=== PATIENT | male | born 1965 | race Caucasian/White ===

== ENCOUNTER → 2017-07-02 | Outpatient (CLI) | payer OTHER | END | disposition home or self-care (01) | LOC: GMAM 10:52 | PROVIDERS: ATTEND Family Medicine | DX: Z00.00 Encounter for general adult medical examination without abnormal findings (principal) ==

== ENCOUNTER → 2019-03-15 | Outpatient (CLI) | payer OTHER | LOC: GMAM 11:59 | PROVIDERS: ATTEND Family Medicine | DX: Z12.5 Encounter for screening for malignant neoplasm of prostate (principal); E11.9 Type 2 diabetes mellitus without complications; I10 Essential (primary) hypertension ==

== ENCOUNTER → 2020-04-10 | Outpatient (CLI) | payer OTHER ==
--- NOTE | 2020-04-10 17:50 | RAD ---
EXAM DESCRIPTION: Chest,2 Views CLINICAL HISTORY: 54 years Male, COVID 19 COMPARISON: 08 March 2020 TECHNIQUE: PA/lateral FINDINGS: Peripheral interstitial infiltrate is observed bilaterally more pronounced on the left. The heart is within range of normal. No pleural fluid is seen. Degenerative changes are seen in the thoracic spine. IMPRESSION: Peripheral interstitial infiltrate is observed bilaterally more pronounced on the left. Electronically signed by: Vimal Mendes MD 04/10/2020 5:48 PM CDT
== END ==
LOC: LAB.O 08:44
PROVIDERS: ATTEND Family Medicine
DX: U07.1 COVID-19 (principal)

== ENCOUNTER → 2020-04-11 | Outpatient (CLI) | payer OTHER | LOC: GMAM 12:32 | PROVIDERS: ATTEND Family Medicine | DX: U07.1 COVID-19 (principal); R09.02 Hypoxemia; R71.8 Other abnormality of red blood cells ==

== ENCOUNTER → 2020-04-25 | Outpatient (CLI) | payer OTHER | LOC: GMAM 14:36 | PROVIDERS: ATTEND Family Medicine | DX: U07.1 COVID-19 (principal) ==

== ENCOUNTER → 2020-06-11 | Outpatient (CLI) | payer OTHER | LOC: LAB.O 11:08 | PROVIDERS: ATTEND Orthopaedic Surgery | DX: Z01.818 Encounter for other preprocedural examination (principal) ==

== ENCOUNTER 2020-07-03 07:00 | Day surgery (SDC) | payer OTHER ==
[~2020-07-03 07:00] MED LIST: BUPIVACAINE 0.5% 30 ML VIAL INJ ONE; BUPIVACAINE LIPOSOME 13.3 MG/ML VIAL INJ ONE; SODIUM CHL 0.9% 100ML MINI-BAG 100 ML IVPB ONE; VANCOMYCIN HCL INJ 1,000 MG VIAL IVPB ONE; ceFAZolin SODIUM 1 GM VIAL ONE
[2020-07-03] MEDS ORDERED: MIDAZOLAM INJ 5 MG/5 ML VIAL ONE (07:18)
[2020-07-03] MEDS ORDERED: DEXMEDETOMIDINE HCL 200 MCG/2 ML INJ IV ONE (07:18)
[2020-07-03] MEDS ORDERED: FAMOTIDINE INJ 10 MG/ML VIAL IV ONE (07:19)
[2020-07-03] MEDS ORDERED: BUPIVACAINE LIPOSOME 13.3 MG/ML VIAL INJ ONE ×2 (07:19→07:44)
[2020-07-03] MEDS ORDERED: BUPIVACAINE 0.5% 30 ML VIAL INJ ONE ×2 (07:19→07:44)
[2020-07-03] MEDS ORDERED: VANCOMYCIN HCL INJ 1,000 MG VIAL IVPB ONE (07:44)
[2020-07-03] MEDS ORDERED: ceFAZolin SODIUM 1 GM VIAL IRRIG ONE (07:44)
[2020-07-03] MEDS: LACTATED RINGERS 1,000 ML ONE (09:35)
[2020-07-03 10:39] VITALS: O2SAT 97
[2020-07-03 11:32] VITALS: BP 138/81; TEMP 97.3
[2020-07-03] MEDS ORDERED: LIDOCAINE 1% 10 ML VIAL INJ ONE (12:42)
[2020-07-03] MEDS ORDERED: MAGNESIUM SULFATE INJ 1 GM/2 ML VIAL IVPB ONE (12:42)
[2020-07-03] MEDS ORDERED: ONDANSETRON INJ 4 MG/2 ML VIAL IV ONE (12:42)
[2020-07-03] MEDS ORDERED: PROPOFOL 200 MG/20 ML VIAL IV ONE (12:42)
[2020-07-04] MEDS: LACTATED RINGERS 1,000 ML ONE (07:14)
--- NOTE | 2020-07-11 08:31 | OP ---
DATE OF PROCEDURE: 07/03/20 PREOPERATIVE DIAGNOSIS: 1. Left rotator cuff syndrome. POSTOPERATIVE DIAGNOSIS: 1. Left rotator cuff syndrome. PROCEDURE: 1. Rotator cuff repair. SURGEON: Conor Miles MD. JOB CHANGE CREW MEMBER: Shalom Lee CST, SA-C. ANESTHESIA: General anesthesia. COMPLICATIONS: None. FINDINGS: 1. Type 2 acromion. 2. Hypertrophic bursitis. 3. Tear in the anterior edge of the supraspinatus measuring approximately 1 cm in its maximal width. INDICATION: Von has a history of shoulder pain that has been problematic and has been getting worse and refractory to conservative measures. Because of the ongoing nature of this, he has requested operative intervention. After discussing the risks, benefits and alternatives to operative therapy, the patient has given informed consent for rotator cuff repair. PROCEDURE: The patient was brought to the Operating Room and placed in the supine position. General anesthesia was induced and the patient was transitioned into the beach chair position. Following transitioning, the arm and shoulder were sterilely prepped and draped. An incision was made at the lateral border of the acromion. The deltoid was split between the anterior and middle heads. Following that, a bursectomy was performed. A minor acromioplasty was performed and the rotator cuff was identified and examined. The aforementioned tear and was noted. The bony footprint was debrided. After debridement of the bony footprint, two suture anchors were used to reapproximate the rotator cuff in a [employer] construct. The arm was taken through a range of motion and there was no instability of the cuff repair. The wound was very thoroughly irrigated and the deltoid reapproximated. Following reapproximation of the deltoid, the skin was closed with a combination of running and interrupted subcuticular stitches. Sterile dressings were placed. The patient was placed in a sling, awoken from anesthesia and taken to Recovery. POSTOPERATIVE PLAN: He will remain in the sling and will followup with us in about two days. #[id number] [facility]
== END 2020-07-03 11:20 | disposition home or self-care (01) ==
LOC: AMB 07:00
PROVIDERS: ATTEND Orthopaedic Surgery
DX: M75.122 Complete rotator cuff tear or rupture of left shoulder, not specified as traumatic (principal); M75.52 Bursitis of left shoulder; G89.18 Other acute postprocedural pain; E11.9 Type 2 diabetes mellitus without complications; I10 Essential (primary) hypertension; Z79.84 Long term (current) use of oral hypoglycemic drugs; Z79.899 Other long term (current) drug therapy
CPT/HCPCS: 01630; 23420; 36416; 64450; 80307; 82948; J0690; J2250; J2405; J3370; J3475; J3490; J7050; J7120